=== PATIENT | female | born 1955 | race Two or more races ===

== ENCOUNTER 2020-06-27 08:30 | Inpatient (IN) | payer OTHER ==
[~2020-06-27] VITALS: Ht 165.1 cm; Wt 98.0 kg
[2020-07-11] MEDS ORDERED: ULTRAM50 MG PO (15:50)
[2020-07-11] MEDS ORDERED: GABAPENTIN800 M1 PO (15:50)
[2020-07-11] MEDS ORDERED: GLUCOTROL10 MG PO (15:50)
[2020-07-11] MEDS ORDERED: JARDIANCE10 MG PO (15:50)
[2020-07-11] MEDS ORDERED: NORVASC2.5 MG PO (15:51)
[2020-07-11] MEDS ORDERED: TENORMIN50 M1 PO (15:51)
[2020-07-11] MEDS ORDERED: HYZAAR 100-251 EACH PO (15:51)
[2020-07-11] MEDS ORDERED: RESTORIL30 M1 PO (15:52)
[2020-07-11] MEDS ORDERED: ATIVAN1 M1 PO (15:52)
[2020-07-11] MEDS ORDERED: ZOLOFT100 MG PO (15:53)
[2020-07-11] MEDS ORDERED: ASPIR 8181 MG PO (15:53)
[2020-07-11] MEDS ORDERED: LIPITOR20 MG PO (15:53)
[2020-07-11] MEDS ORDERED: ZETIA10 MG PO (15:53)
== END 2020-07-21 10:35 | disposition home or self-care (01) | DRG 331 ==
LOC: O/R 07-18 05:40 → SURH 07-18 05:40
PROVIDERS: ADMIT Colon & Rectal Surgery; ATTEND Colon & Rectal Surgery
PROC: 07TB4ZZ Resection of Mesenteric Lymphatic, Percutaneous Endoscopic Approach (ICD-10-PCS; 2020-07-18)
PROC: 0DTF4ZZ Resection of Right Large Intestine, Percutaneous Endoscopic Approach (ICD-10-PCS; principal; 2020-07-18 07:00)
DX: D12.0 Benign neoplasm of cecum (principal); R59.0 Localized enlarged lymph nodes; K63.89 Other specified diseases of intestine